=== PATIENT | male | born 1955 | race Caucasian/White ===

== ENCOUNTER → 2024-10-24 | Outpatient (CLI) | payer MEDICARE | END | disposition home or self-care (01) | LOC: RAD 10:31 | PROVIDERS: ATTEND Internal Medicine | DX: I70.213 Atherosclerosis of native arteries of extremities with intermittent claudication, bilateral legs (principal) | CPT/HCPCS: 93922; 93925 ==

== ENCOUNTER → 2024-11-02 | Outpatient (CLI) | payer MEDICARE | END | disposition home or self-care (01) | LOC: RAD 12:58 → EDUNIT# 13:30 | PROVIDERS: ATTEND Internal Medicine | DX: I34.1 Nonrheumatic mitral (valve) prolapse (principal); I10 Essential (primary) hypertension; R06.02 Shortness of breath | CPT/HCPCS: 93306 ==

== ENCOUNTER 2024-11-30 10:00 | Day surgery (SDC) | payer MEDICARE ==
[2024-11-25 11:00] VITALS: BP 137/76; PULSE 75; RESP 18; TEMP 98.1; O2SAT 99
[2024-11-25 11:23] LABS: BASOPHIL % 0.2 % (0.2-1.2); EOSINOPHIL # 0.1 10^3/uL (0.0-0.2); HEMATOCRIT(ML) 41.8 % (37.0-53.0); IG % 0.2 % (0.00-0.50); LYMPHOCYTES # 1.39 10^3/uL1 (1.0-4.8); LYMPHOCYTES % 28.3 % (24.0-44.0); MEAN CORP HGB 30.1 pg (26-34); MEAN CORP HGB CONCENTRATION 33.5 g/dL (33-36.5); MEAN CORP VOLUME 89.9 fL (78-100); MONOCYTES # 0.3 10^3/uL (0.3-0.8); MONOCYTES % 6.5 % (5.0-12.0); NEUTROPHIL # 3.1 10^3/uL (1.8-7.7); NEUTROPHILS % 62.8 % (41.0-85.0); RED BLOOD CELL 4.65 10^6/uL (4.50-5.90); RED CELL DISTRIBUTION WIDTH 14.8 % (11.5-14.5); WHITE BLOOD CELL 4.9 10^3/uL (4.5-11.0)
[2024-11-25 11:48] LABS: ANION GAP 12.6; BUN/CREATININE RATIO 7.25 (10.0-20.0); CALCIUM 9.2 mg/dL (8.4-10.5); CARBON DIOXIDE 28.4 mmol/L (20.0-32); CREATININE SERUM 1.24 mg/dL (0.59-1.40); EST GFR, NON-AA 57.5 (>/=60)
[2024-11-25 12:09] LABS: INR 1.1; PROTHROMBIN PROTIME 11.6 SEC (9.7-11.6)
[2024-11-30] VITALS (8 sets, daily range): BP systolic 105–158; BP diastolic 56–80; PULSE 78–99; RESP 16–18; TEMP 98.1; O2SAT 95–97
[~2024-11-30] VITALS: Ht 172.7 cm; Wt 81.6 kg
[~2024-11-30 10:00] MED LIST: ATOR40TA PO; HYDR12.58 PO; LEVO25TA4 PO; LOSA100T15 PO; MULT-632 PO; NS 1000ML 1,000 ML ONE; [UNRECOGNIZED DRUG - CODE] PO
[2024-11-30] MEDS: NS 1000ML 1,000 ML IV ONE (10:25)
[2024-11-30] MEDS ORDERED: SUBLIMAZE 100MCG/2ML ONE (12:48)
[2024-11-30] MEDS ORDERED: VERSED ONE ×2 (12:49→13:16)
[2024-11-30] MEDS ORDERED: HEPARIN ONE (13:30)
[2024-11-30] MEDS ORDERED: PLAVIX ONE ×2 (13:58→14:00)
[2024-11-30] MEDS ORDERED: ASPIRIN ONE (13:58)
== END 2024-11-30 15:55 | disposition home or self-care (01) ==
LOC: SDC 10:00
PROVIDERS: ATTEND Internal Medicine
DX: R94.39 Abnormal result of other cardiovascular function study (principal); I25.10 Atherosclerotic heart disease of native coronary artery without angina pectoris; I70.213 Atherosclerosis of native arteries of extremities with intermittent claudication, bilateral legs; I10 Essential (primary) hypertension; E78.5 Hyperlipidemia, unspecified; Z79.02 Long term (current) use of antithrombotics/antiplatelets; Z95.5 Presence of coronary angioplasty implant and graft
CPT/HCPCS: 85025; 36415; 80048; 85610; 99153; 99152; 75716; 93458; 93005; C9600; J7030; J1644 ×2; C1894 ×4; C1769 ×3; A6258; C1887; J2250 ×2; J3010; A4618; C1725; E0617; C1874; Q9967 ×2; J8499; 75625; C1760